=== PATIENT | male | born 1935 | race Caucasian/White ===

== ENCOUNTER → 2024-11-10 | Outpatient (CLI) | payer MEDICARE ==
[~2024-11-10] MED LIST: ATEN50 PO; ATOR20 PO; FINA5 PO; LOSA25 PO; TERA5 PO
== END ==
LOC: LAB SHORT 10:50 → LAB 10:50
DX: L08.9 Local infection of the skin and subcutaneous tissue, unspecified (principal)
CPT/HCPCS: 87070; 87077; 87106; 87186; 87205